=== PATIENT | male | born 1985 | race African-American/Black ===

== ENCOUNTER 2019-04-26 20:23 | Emergency (ER) | payer BC, OTHER, SELFPAY ==
[2019-04-26] MEDS ORDERED: Bacitracin 1 PK ONE (22:15)
== END 2019-04-26 22:33 | disposition home or self-care (01) ==
LOC: SCSER 20:23
DX: S51.811A Laceration without foreign body of right forearm, initial encounter (principal); F17.210 Nicotine dependence, cigarettes, uncomplicated; W25.XXXA Contact with sharp glass, initial encounter
CPT/HCPCS: 12004

== ENCOUNTER 2019-05-06 18:35 | Emergency (ER) | payer BC | END 2019-05-06 19:22 | disposition home or self-care (01) | LOC: SCSER 18:35 | DX: S51.811D Laceration without foreign body of right forearm, subsequent encounter (principal); F17.210 Nicotine dependence, cigarettes, uncomplicated ==

== ENCOUNTER 2019-05-13 15:46 | Emergency (ER) | payer BC | END 2019-05-13 16:16 | disposition home or self-care (01) | LOC: SCSER 15:46 | DX: S50.851A Superficial foreign body of right forearm, initial encounter (principal); F17.210 Nicotine dependence, cigarettes, uncomplicated; W25.XXXA Contact with sharp glass, initial encounter | CPT/HCPCS: 99283 ==